=== PATIENT | male | born 2000 | race African-American/Black ===

== ENCOUNTER 2023-06-12 00:14 | Emergency (ER) | payer OTHER, SELFPAY ==
[2023-06-12] MEDS ORDERED: Ibuprofen 200 MG TAB ONE (00:56)
== END 2023-06-12 01:01 | disposition home or self-care (01) ==
LOC: CSHERS 00:14
DX: S13.4XXA Sprain of ligaments of cervical spine, initial encounter (principal); F17.220 Nicotine dependence, chewing tobacco, uncomplicated; Z55.6 Problems related to health literacy; Y03.0XXA Assault by being hit or run over by motor vehicle, initial encounter
CPT/HCPCS: 72040